=== PATIENT | female | born 1985 | race Caucasian/White ===

== ENCOUNTER 2018-04-23 17:21 | Emergency (ER) | payer OTHER ==
[~2018-04-23] VITALS: Ht 157.5 cm; Wt 74.7 kg
--- NOTE | 2018-04-23 19:02 | PHYS DOC ---
Past History Past Medical History: Hypothyroid Past Surgical History: , Other Additional Smoking Information: quit 2014 Alcohol Use: None Drug Use: Methamphetamine Social History Narrative: hasn't used since 2010 Adult General Chief Complaint Chief Complaint: COUGH HPI HPI Patient is a 32-year-old female who presents with complaint of cough and chest discomfort that started on Monday. She describes pain in her chest is sharp and stabbing in nature and states the pain is worsened with deep breathing and with coughing. She denies any fever. She also denies any nausea, vomiting or diarrhea. She does admit to a headache. Patient states that she has been around several people who were diagnosed with the flu. Review of Systems Review of Systems Constitutional: Denies fever or chills [] HENT: Positive congestion[] Respiratory: Positive cough and shortness of breath [] Cardiovascular: No additional information not addressed in HPI [] GI: Denies abdominal pain, nausea, vomiting or diarrhea [] Musculoskeletal: Denies back pain or joint pain [] All other systems were reviewed and found to be within normal limits, except as documented in this note. Allergies Allergies Allergies Coded Allergies Type Severity Reaction Last Updated Verified morphine Allergy Unknown Itching 04/23/18 Yes Physical Exam Physical Exam Constitutional: Well developed, well nourished, no acute distress, non-toxic appearance. [] HENT: Normocephalic, atraumatic, bilateral external ears normal, oropharynx moist, no oral exudates, nose normal. [] Eyes: PERRLA, EOMI, conjunctiva normal, no discharge. [] Neck: Normal range of motion, no tenderness, supple, no stridor. [] Cardiovascular: Regular rate and rhythm[] Lungs & Thorax: Bilateral breath sounds clear to auscultation [] Abdomen: Bowel sounds normal, soft, no tenderness. [] Skin: Warm, dry, no erythema, no rash. [] Extremities: No tenderness, no cyanosis, no clubbing, ROM intact, no edema. [] Neurologic: Alert and oriented X 3, no focal deficits noted. [] Current Patient Data Vital Signs Vital Signs Date Time Temp Pulse Resp B/P (MAP) Pulse Ox O2 Delivery O2 Flow Rate FiO2 04/23/18 17:35 98.5 70 18 100 Room Air EKG EKG [] Radiology/Procedures Radiology/Procedures [] Impressions: Two-view chest x-ray demonstrates no acute process. Course & Med Decision Making Course & Med Decision Making Pertinent Labs and Imaging studies reviewed. (See chart for details) [] Dragon Disclaimer Dragon Disclaimer This electronic medical record was generated, in whole or in part, using a voice recognition dictation system. Departure Departure: Impression: Primary Impression: Acute bronchitis Disposition: HOME, SELF-CARE Condition: STABLE Referrals: NON,STAFF (PCP) Patient Instructions: Acute Bronchitis Scripts Levothyroxine Sodium (SYNTHROID) 50 Mcg Tablet 1 TAB PO DAILY for thyroid, #30 TAB Prov: CHARLY MORRIS Jr. DO 04/23/18 Guaifenesin/Codeine Phosphate (CHERATUSSIN AC SYRUP) 118 Ml Liquid 5 ML PO PRN Q6HRS PRN for COUGH, #120 ML Prov: CHARLY MORRIS Jr. DO 04/23/18 Azithromycin (ZITHROMAX) 250 Mg Tablet 1 PKG PO UD for infection, #6 TAB Prov: CHARLY MORRIS Jr. DO 04/23/18 Problem Qualifiers Primary Impression: Acute bronchitis Bronchitis organism: unspecified organism Qualified Codes: J20.9 - Acute bronchitis, unspecified CHARLY MORRIS Jr. DO Apr 23, 2018 19:02
[2018-04-23 19:19] LABS: BASO % 1 % (0-3); EOS % 1 % (0-3); HEMATOCRIT 40.3 % (36.0-47.0); HEMOGLOBIN 13.6 g/dL (12.0-15.5); LYMPH # 1.6 x10^3/uL (1.0-4.8); LYMPH % 30 % (24-48); MEAN CORPUSCULAR HEMOGLOBIN 32 pg (25-35); MEAN CORPUSCULAR HGB CONC 34 g/dL (31-37); MEAN CORPUSCULAR VOLUME 94 fL (79-100); MONO # 0.7 x10^3/uL (0.0-1.1); MONO % 13 % (0-9); NEUT % 56 % (31-73); PLATELET COUNT 213 x10^3/uL (140-400); RED CELL DISTRIBUTION WIDTH 13.5 % (11.5-14.5); WHITE BLOOD COUNT 5.4 x10^3/uL (4.0-11.0)
[2018-04-23 19:38] LABS: CALCIUM 8.8 mg/dL (8.5-10.1); CREATININE 0.8 mg/dL (0.6-1.0); GFR 83.7; POTASSIUM 3.9 mmol/L (3.5-5.1); TOTAL BILIRUBIN 0.4 mg/dL (0.2-1.0)
[2018-04-23 19:42] LABS: INFLUENZA A PATIENT NEGATIVE (NEGATIVE); INFLUENZA B PATIENT NEGATIVE (NEGATIVE)
--- NOTE | 2018-04-23 19:52 | RAD ---
CHEST PA LATERAL History: Chest pain, cough, congestion, weakness Comparison: None. Findings: 2 views of the chest are submitted. There is no infiltrate, pneumothorax, or effusion. The cardiac silhouette is within normal limits in size. The trachea is in the midline. No acute osseous abnormality is identified. Impression: 1. There is no evidence of acute cardiopulmonary disease. Electronically signed by: Roque Esquivel MD (04/23/2018 7:49 PM) [facility]
[2018-04-23] MEDS ORDERED: guaiFENesin/CODEINE 100mg/10mg 5 ML LIQUID ONE (20:44)
[2018-04-23] MEDS ORDERED: guaiFENesin/CODEINE 100mg/10mg 5 ML LIQUID PO STA (20:44)
[2018-04-23] MEDS ORDERED: LEVO50TA PO (21:38)
[2018-04-23] MEDS ORDERED: AZIT250T PO (21:38)
[2018-04-23] MEDS ORDERED: GUAI118L20 PO (21:38)
[2018-04-23] MEDS ORDERED: traMADol 50 MG TABLET PO ONE (22:00)
[2018-04-23 22:11] VITALS: BP 111/78
[2018-04-23] MEDS ORDERED: IBUPROFEN 600 MG TABLET. PO ONE (22:15)
== END 2018-04-23 22:10 | disposition home or self-care (01) ==
LOC: ER 17:21
DX: J20.9 Acute bronchitis, unspecified (principal); E03.9 Hypothyroidism, unspecified; Z87.891 Personal history of nicotine dependence; Z88.5 Allergy status to narcotic agent
CPT/HCPCS: 36415; 71046; 80053; 85025; 85379; 87804; 99284

== ENCOUNTER → 2018-06-22 | Outpatient (CLI) | payer OTHER ==
[~2018-06-22] MED LIST: AZIT250T PO; GUAI118L20 PO; LEVO50TA PO
--- NOTE | 2018-06-22 15:45 | RAD ---
DATE: 06/22/2018 EXAM: MAMMO TAMMIE WOODY LOUISE, BREAST BILATERAL HISTORY: Bilateral breast lumps , pain COMPARISON: Baseline study This study was interpreted with the benefit of Computerized Aided Detection (CAD). Breast Density: SCATTERED The breast parenchyma shows scattered fibroglandular densities. Breast parenchyma level B. FINDINGS: 2-D and 3-D tomosynthesis imaging was performed in CC and MLO projections. BBs were placed on the skin surface over the areas of reported palpable concern. No breast mass or architectural distortion is seen. No suspicious microcalcifications are evident. Bilateral breast ultrasound, 06/22/2018: A targeted ultrasound exam of both breasts was performed in the areas of reported palpable concern. The left breast was scanned at the 7:00 and 9:00 locations. The right breast was scanned at the 10:00 location and at the 2-5 o'clock locations. Normal heterogeneous fibroglandular shadows are evident. No solid mass or unusual fluid collection is seen. IMPRESSION: 1. There is no mammographic evidence of malignancy in either breast. 2. Targeted ultrasound examination of both breasts reveal no abnormality. 3. Clinical surveillance is suggested. BI-RADS CATEGORY: 1 NEGATIVE RECOMMENDED FOLLOW-UP: CLIN FOLLOW UP IMAGING CLINICALLY INDICATED PQRS compliance statement: Patient information was entered into a reminder system with a target due date for the next mammogram. Mammography is a sensitive method for finding small breast cancers, but it does not detect them all and is not a substitute for careful clinical examination. A negative mammogram does not negate a clinically suspicious finding and should not result in delay in biopsying a clinically suspicious abnormality. "Our facility is accredited by the [employer] Mammography Program."
== END | disposition home or self-care (01) ==
LOC: US 13:23
PROVIDERS: ATTEND Registered Nurse
DX: N63.10 Unspecified lump in the right breast, unspecified quadrant (principal); N63.20 Unspecified lump in the left breast, unspecified quadrant
CPT/HCPCS: 76641; 77066; G0279; 77062

== ENCOUNTER → 2018-07-17 | Outpatient (CLI) | payer OTHER ==
--- NOTE | 2018-07-17 10:06 | CARD ---
MR#: [id number] Date of Study: 07/17/2018 Ordering Physician: CAT AMADOR, Referring Physician: CAT AMADOR Tech: Makenna Steven RDCS APPROVED REPORT EXAM: Two-dimensional and M-mode echocardiogram with Doppler and color Doppler. Other Information Quality : AverageHR: 60bpm Rhythm : NSR INDICATION Chest Pain 2D DIMENSIONS RVDd3.0 (2.9-3.5cm)Left Atrium(2D)3.0 (1.6-4.0cm) IVSd0.7 (0.7-1.1cm)Aortic Root(2D)2.7 (2.0-3.7cm) LVDd4.3 (3.9-5.9cm)LVOT Diameter1.8 (1.8-2.4cm) PWd0.6 (0.7-1.1cm)LVDs2.7 (2.5-4.0cm) FS (%) 36.5 %SV56.2 ml LVEF(%)66.6 (>50%) M-Mode DIMENSIONS Left Atrium(MM)2.73 (2.5-4.0cm)Aortic Root2.66 (2.2-3.7cm) Aortic Valve AoV Peak Rodney.119.8cm/sAoV VTI27.6cm AO Peak GR.5.7mmHgLVOT Peak Rodney.101.8cm/s LVOT VTI 24.87cmAO Mean GR.3mmHg ART (VMAX)2.36pq2NED (VTI)2.21cm2 Mitral Valve MV E Ikareuzi888.0cm/sMV DECEL [id number] MV A Mbmdddef10.5cm/sE/A Ratio2.2 Pulmonary Valve PV Peak Cwseynxo917.1cm/sPV Peak Grad.4mmHg Tricuspid Valve TR P. Oxudopli829gk/sRAP [id number] TR Peak Gr.[id number] LEFT VENTRICLE The left ventricle is normal size. There is normal left ventricular wall thickness. The left ventricu lar systolic function is normal. The Ejection Fraction is 60-65%. There is normal LV segmental wall m otion. The left ventricular diastolic function and filling is normal for age. RIGHT VENTRICLE The right ventricle is normal size. There is normal right ventricular wall thickness. The right ventr icular systolic function is normal. ATRIA The left atrium size is normal. The right atrium size is normal. The interatrial septum is intact wit h no evidence for an atrial septal defect or patent foramen ovale as noted on 2-D or Doppler imaging. AORTIC VALVE The aortic valve is normal in structure and function. The aortic valve is trileaflet. Doppler and Col or Flow revealed no significant aortic regurgitation. There is no significant aortic valvular stenosi s. There is no aortic valvular vegetation. MITRAL VALVE The mitral valve is normal in structure and function. There is no evidence of mitral valve prolapse. There is no mitral valve stenosis. Doppler and Color-flow revealed trace mitral regurgitation. TRICUSPID VALVE The tricuspid valve is normal in structure and function. Doppler and Color Flow revealed trace tricus pid regurgitation. The PA pressure was estimated at 21 mmHg. There is no tricuspid valve prolapse or vegetation. There is no tricuspid valve stenosis. PULMONIC VALVE The pulmonary valve is normal in structure and function. Doppler and Color Flow revealed trace pulmon ic valvular regurgitation. There is no pulmonic valvular stenosis. GREAT VESSELS The aortic root is normal in size. The ascending aorta is normal in size. The IVC is normal in size a nd collapses >50% with inspiration. PERICARDIAL EFFUSION There is no evidence of significant pericardial effusion. Critical Notification Critical Value: No <Conclusion> The left ventricular systolic function is normal. The Ejection Fraction is 60-65%. There is normal LV segmental wall motion. Trace mitral regurgitation. Trace tricuspid regurgitation. The PA pressure was estimated at 21 mmHg. There is no evidence of significant pericardial effusion. Signed by : Manoj Scott, Electronically Approved : 07/17/2018 10:06:20
== END | disposition home or self-care (01) ==
LOC: ECHO 09:04
PROVIDERS: ATTEND Registered Nurse
DX: R07.9 Chest pain, unspecified (principal)
CPT/HCPCS: 93306